=== PATIENT | male | born 1990 | race Caucasian/White ===

== ENCOUNTER → 2020-12-03 | Outpatient (CLI) | payer OTHER ==
[2020-12-05 13:11] LABS: HAPTOGLOBIN 56 mg/dL (17-317); TISSUE TRANSGLUTAMINASE IgA 3 U/mL (0-3)
== END ==
LOC: M LAB 15:28
PROVIDERS: ATTEND Internal Medicine Gastroenterology
DX: E80.4 Gilbert syndrome (principal)

== ENCOUNTER → 2020-12-04 | Outpatient (REF) | payer OTHER ==
[2020-12-11 00:07] LABS: CALPROTECTIN STOOL 19 ug/g (0-120); PANCREATIC ELASTASE STOOL 380 (>200)
== END ==
LOC: M LAB REF 09:53
PROVIDERS: ATTEND Internal Medicine Gastroenterology
DX: R10.84 Generalized abdominal pain (principal)

== ENCOUNTER → 2020-12-22 | Outpatient (CLI) | payer OTHER ==
[~2020-12-22] MED LIST: GASTROGRAFIN SOLUTION 30ML (Q9963) As Ordered ONE; GLUCAGON INJ 1MG VIAL As Ordered ONE; ISOVUE-370 76% 100ML VIAL As Ordered ONE; NEULUMEX 0.1% SUSPENSION 450ML BOTTLE (FORMERLY VOLUMEN) As Ordered ONE
--- NOTE | 2020-12-23 08:45 | REP ---
INDICATION: FECAL ABNORMALITIES, ABD PAIN. COMPARISON: None. TECHNIQUE: Oral volumin 450 mL in the 3 doses per our protocol and 100 mL Isovue 370 with scanning through the abdomen and pelvis in arterial and venous phases. Coronal and sagittal reconstructions in arterial and venous phases with standard and MIP reformats. FINDINGS: CT abdomen: Lung bases are clear. Heart not enlarged. There is no pericardial thickening or effusion. The liver and spleen unremarkable. Gallbladder without mass or layering stone. Pancreas is unremarkable. Adrenal glands are normal. Kidneys are unremarkable. The aorta and branches are normal. No periaortic, other retroperitoneal or mesenteric lymphadenopathy. Stomach is quite distended with some retained food and large volume fluid. Fluid is also seen throughout small bowel loops. The standard and MIP reformats suggests some mild wall thickening of the proximal to mid jejunal loops. There is no dilatation of loops or air-fluid levels. No mesenteric stranding or edema nor any fluid collections. See no stricture, small bowel mass or dilatation. Terminal ileum was grossly unremarkable. No pericecal stranding or pathologic sized adenopathy. Appendix is seen and normal. Abdominal portion of the colon was unremarkable. Bony lumbar and thoracic spine as well as the lower ribs are unremarkable. CT pelvis: Bony sacrum, SI joints, pelvis and hips are without fracture, focal bone lesion or other acute finding. Distal left colon, sigmoid and rectum retained stool but no acute inflammatory process. Bladder is adequately distended without mass, stone or wall thickening. No distal ureteral dilatation or stone. No pelvic lymphadenopathy or free fluid. No ventral or inguinal hernia nor pathologic sized inguinal adenopathy IMPRESSION: 1. There is some mild the thickening of bowel wall of the proximal to mid jejunum in the left upper quadrant without dilatation or air-fluid level. Remainder of the small bowel is unremarkable. There is no mesenteric edema or infiltration and no abnormality of the terminal ileum. I see no mesenteric or pericecal pathologic sized lymph nodes. 2. Colon, appendix and solid organs in the upper abdomen are unremarkable. 3. Stomach well distended with the fluid and some retained food. However fluid is seen throughout the small intestine in the study for adequate exam. 4. No calcified gallstone or biliary dilatation. No free air, generalized ascites, acute bony finding or other significant abnormality. <Electronically signed by Viral Lipscomb > 12/23/20 [id number]
== END ==
LOC: M RAD 15:01
PROVIDERS: ATTEND Internal Medicine Gastroenterology
DX: R19.5 Other fecal abnormalities (principal); R10.84 Generalized abdominal pain
CPT/HCPCS: 74177; J1610; Q9967

== ENCOUNTER → 2021-01-15 | Outpatient (CLI) | payer OTHER ==
--- NOTE | 2021-01-15 15:10 | REP ---
INDICATION: FOREIGN BODY IN SMALL INTESTINE, INITIAL ENCOUNTER. COMPARISON: None. TECHNIQUE: Supine FINDINGS: There is a cylindrical shaped 1.8 x 1.3 cm sized radiodensity consistent with an ingested foreign body in the mid pelvis just to the right of the midline at the level of the 5th sacral segment. The intestinal gas pattern nonspecific. Pelvic phleboliths are noted. The osseous structures are within normal limits. IMPRESSION: As above <Electronically signed by Josr Mackay > 01/15/21 [id number]
== END ==
LOC: M RAD 14:07
PROVIDERS: ATTEND Internal Medicine Gastroenterology
DX: T18.3XXA Foreign body in small intestine, initial encounter (principal); Y92.89 Other specified places as the place of occurrence of the external cause

== ENCOUNTER → 2021-01-23 | Outpatient (CLI) | payer OTHER ==
--- NOTE | 2021-01-23 14:21 | REP ---
INDICATION: FOREIGN BODY IN SMALL INTESTINE, INITIAL ENCOUNTER. COMPARISON: 01/15/2021 TECHNIQUE: Upright view of the lower chest/along with supine view of the abdomen and pelvis. Abdomen FINDINGS: Lung bases are clear. No free air below diaphragm to suspect pneumoperitoneum. Bowel gas pattern is normal/nonspecific. No organomegaly. Foreign body identified within the mid pelvis essentially unchanged in position and appearance. Skeletal structures are intact. IMPRESSION: 1. Foreign body again identified in the pelvis and unchanged in position and appearance. 2. Nonspecific bowel gas pattern. <Electronically signed by Jomar Carmona > 01/23/21 [id number]
== END ==
LOC: M RAD 14:05
PROVIDERS: ATTEND Internal Medicine Gastroenterology
DX: T18.3XXA Foreign body in small intestine, initial encounter (principal); Y92.89 Other specified places as the place of occurrence of the external cause

== ENCOUNTER → 2021-02-25 | Outpatient (CLI) | payer OTHER | LOC: M LABSMTC 10:52 | PROVIDERS: ATTEND Anesthesiology | DX: Z01.812 Encounter for preprocedural laboratory examination (principal); Z20.822 Contact with and (suspected) exposure to COVID-19 ==

== ENCOUNTER 2021-03-02 10:16 | Day surgery (SDC) | payer OTHER ==
[~2021-03-02] VITALS: Ht 180.3 cm; Wt 86.2 kg
[~2021-03-02 10:16] MED LIST changes: -GASTROGRAFIN SOLUTION 30ML (Q9963) As Ordered ONE; -GLUCAGON INJ 1MG VIAL As Ordered ONE; -ISOVUE-370 76% 100ML VIAL As Ordered ONE; -NEULUMEX 0.1% SUSPENSION 450ML BOTTLE (FORMERLY VOLUMEN) As Ordered ONE; +NS 1,000 ML IV ONE
[2021-03-02] MEDS ORDERED: fentaNYL 100 MCG/2 ML INJECTION (J3010) As Ordered ONE (11:39)
[2021-03-02] MEDS ORDERED: LIDOCAINE 2% 100MG/5ML SDV (FOR ANES.) As Ordered ONE (11:44)
[2021-03-02] MEDS ORDERED: propofoL 200 MG/20 ML VIAL As Ordered ONE (11:44)
--- NOTE | 2021-03-02 12:00 | ROOR ---
Patient Name: Dennis Ogden Procedure Date: 03/02/2021 11:38 AM Date of : 1990 Age: 30 Room: [facility] Gender: Male Note Status: Finalized Procedure: Upper GI endoscopy Indications: Abdominal pain Providers: Zachariah Rodriguez MD Referring MD: KARL MARROQUIN DO Requesting Provider: Medicines: Monitored Anesthesia Care Complications: No immediate complications. Procedure: Pre-Anesthesia Assessment: - The heart rate, respiratory rate, oxygen saturations, blood pressure, adequacy of pulmonary ventilation, and response to care were monitored throughout the procedure. The Endoscope was introduced through the mouth, and advanced to the second part of duodenum. The upper GI endoscopy was accomplished without difficulty. The patient tolerated the procedure well. Findings: The Z-line was variable and was found 40 cm from the incisors. This was biopsied with a cold forceps for histology. Scattered mild inflammation characterized by erythema was found in the gastric antrum. Biopsies were taken with a cold forceps for histology. The examined duodenum was normal. Biopsies were taken with a cold forceps for histology. Impression: - Normal esophagus, Z-line variable, 40 cm from the incisors. Biopsied. - Minimal gastritis. Biopsied. - Otherwise normal stomach. - Normal examined duodenum. Biopsied. Recommendation: - Use Prilosec (omeprazole) 20 mg PO daily for 3 months. - Telephone endoscopist for pathology results in 2 weeks. Procedure Code(s): --- Professional --- 55202, Esophagogastroduodenoscopy, flexible, transoral; with biopsy, single or multiple Diagnosis Code(s): --- Professional --- R10.9, Unspecified abdominal pain K29.70, Gastritis, unspecified, without bleeding K22.8, Other specified diseases of esophagus CPT copyright 2019 [employer]. All rights reserved. The codes documented in this report are preliminary and upon passenger car conductor review may be revised to meet current compliance requirements. Zachariah Rodriguez MD Zachariah Rodriguez MD 03/02/2021 11:59:48 AM Electronically signed by Zachariah Rodriguez MD Number of Addenda: 0 Note Initiated On: 03/02/2021 11:38 AM Estimated Blood Loss: Estimated blood loss: none. Estimated blood loss: none.
--- NOTE | 2021-03-02 12:14 | ROOR ---
Patient Name: Dennis Ogden Procedure Date: 03/02/2021 11:39 AM Date of : 1990 Age: 30 Room: [facility] Gender: Male Note Status: Finalized Procedure: Colonoscopy Indications: Abnormal CT of the GI tract, Abdominal pain, Change in bowel habits Providers: Zachariah Rodriguez MD Referring MD: KARL MARROQUIN DO Requesting Provider: Medicines: Monitored Anesthesia Care Complications: No immediate complications. Procedure: Pre-Anesthesia Assessment: - The heart rate, respiratory rate, oxygen saturations, blood pressure, adequacy of pulmonary ventilation, and response to care were monitored throughout the procedure. The Colonoscope was introduced through the anus and advanced to 20 cm into the ileum. The colonoscopy was performed without difficulty. The patient tolerated the procedure well. The quality of the bowel preparation was good. Findings: The perianal and digital rectal examinations were normal. A diminutive polyp was found in the rectum. The polyp was semi-sessile. The polyp was removed with a jumbo cold forceps. Resection and retrieval were complete. The exam was otherwise normal throughout the examined colon. The terminal ileum appeared normal. Biopsies were taken with a cold forceps in the entire colon and in the terminal ileum for histology. Impression: - One diminutive polyp in the rectum, removed with a jumbo cold forceps. Resected and retrieved. - The colon is otherwise normal. - The terminal ileum is normal. - Biopsies were taken with a cold forceps for histology in the entire colon and in the terminal ileum. Recommendation: - Telephone endoscopist for pathology results in 2 weeks. - To visualize the small bowel, perform video capsule endoscopy at appointment to be scheduled. - My office will call you in the next few days to set you up for this study/exam. Procedure Code(s): --- Professional --- 36540, Colonoscopy, flexible; with biopsy, single or multiple Diagnosis Code(s): --- Professional --- R93.3, Abnormal findings on diagnostic imaging of other parts of digestive tract R19.4, Change in bowel habit R10.9, Unspecified abdominal pain K62.1, Rectal polyp CPT copyright 2019 [employer]. All rights reserved. The codes documented in this report are preliminary and upon salesperson men's furnishings review may be revised to meet current compliance requirements. Zachariah Rodriguez MD Zachariah Rodriguez MD 03/02/2021 12:13:52 PM Electronically signed by Zachariah Rodriguez MD Number of Addenda: 0 Note Initiated On: 03/02/2021 11:39 AM Estimated Blood Loss: Estimated blood loss: none.
[2021-03-02 12:40] VITALS: BP 109/60
== END 2021-03-02 12:46 | disposition home or self-care (01) ==
LOC: M OPP 10:16
PROVIDERS: ATTEND Internal Medicine Gastroenterology
DX: R93.3 Abnormal findings on diagnostic imaging of other parts of digestive tract (principal); K63.5 Polyp of colon; K62.1 Rectal polyp; R19.4 Change in bowel habit; R10.9 Unspecified abdominal pain; K22.8 Other specified diseases of esophagus; K29.70 Gastritis, unspecified, without bleeding; K20.90 Esophagitis, unspecified without bleeding
CPT/HCPCS: 43239; 45380; 88305; J3010

== ENCOUNTER → 2021-03-10 | Outpatient (CLI) | payer OTHER ==
--- NOTE | 2021-03-10 12:51 | REP ---
INDICATION: FOREIGN BODY IN COLON, INITIAL ENCOUNTER COMPARISON: None. TECHNIQUE: Supine views of the abdomen and pelvis. FINDINGS: Bowel gas pattern is nonspecific and without obstruction or perforation. No organomegaly. No abnormal calcifications. Skeletal structures intact. Previously identified foreign body is no longer present. IMPRESSION: Normal abdominal radiograph. No evidence for foreign body on current examination. <Electronically signed by Jomar Carmona > 03/10/21 [id number]
== END ==
LOC: M RAD 12:24
PROVIDERS: ATTEND Internal Medicine Gastroenterology
DX: T18.4XXA Foreign body in colon, initial encounter (principal); T18.3XXA Foreign body in small intestine, initial encounter

== ENCOUNTER → 2022-06-25 | Outpatient (CLI) | payer OTHER | LOC: M RAD 16:30 | PROVIDERS: ATTEND Physician Assistant | DX: J32.8 Other chronic sinusitis (principal) ==

== ENCOUNTER → 2023-07-19 | Outpatient (REF) | LOC: M PLARAD 09:59 → M PLAIMG 09:59 | PROVIDERS: ATTEND Internal Medicine | DX: R06.02 Shortness of breath (principal) ==

== ENCOUNTER → 2024-04-02 | Outpatient (CLI) | payer OTHER | LOC: M SLEEP 20:00 | PROVIDERS: ATTEND Internal Medicine | DX: G47.33 Obstructive sleep apnea (adult) (pediatric) (principal) ==